=== PATIENT | female | born 1960 | race Caucasian/White ===

== ENCOUNTER 2018-01-05 06:49 | Day surgery (SDC) | payer MEDICAID, SELFPAY ==
[2018-01-04 09:54] VITALS: BMI 26.6
[2018-01-05] VITALS (16 sets, daily range): BP systolic 106–145; BP diastolic 53–89; PULSE 74–91; RESP 14–18; TEMP 36.7–36.8; O2SAT 94–100
--- NOTE | 2018-01-05 08:44 | P.PCN_ITS ---
- Procedure: Date: 01/05/18 Procedure Performed:: Colonoscopy with polypectomy Indications:: This is a 57-year-old female who returns for short-term repeat colonoscopy. She is approximately 1.5 year status post colonoscopy at which time a 9 mm complex polyp at 15 cm was excised. Pathologically, this was found to be hyperplastic. The visual findings and pathologic findings were considered to be discordant and a fairly short-term repeat was deemed necessary. Performing Provider:: Agustín Bennett MD Referring Provider:: Ramya Stokes APRN Sedation:: IV sedation with 11 mg of Versed and 200 mcg of fentanyl Procedure:: After informed consent was obtained, the patient was taken to the endoscopy suite. IV sedation ensued after she was transferred to the left lateral decubitus position. Digital rectal exam revealed some hemorrhoidal tags. No thrombosis or bleeding was seen. The colonoscope was placed in position. The entire colon was evaluated. Bowel preparation was moderate with large volume irrigation and suctioning used to improve visualization. Sigmoid diverticulosis once again noted. Fairly significant spasticity and tortuosity were noted. A sessile lobulated 8 mm cecal polyp was excised by way of snare. A small polyp at 40 cm was excised with cold biopsy forceps. No additional lesions were seen. The colonoscope was carefully removed and the patient was transferred to recovery. Findings:: Moderate bowel preparation Hemorrhoidal tags/cushions Fairly significant spasticity and tortuosity Unchanged sigmoid diverticulosis Sessile lobulated 8 mm cecal polyp Small polyp at 40 cm Specimens:: Sessile lobulated 8 mm cecal polyp (snared) Small polyp at 40 cm Recommendations:: Repeat colonoscopy is pending pathology but will likely be within 2-3 years secondary to size/nature of polyps, moderate preparation, and spasticity/ tortuosity. Complications:: No immediate Estimated blood obtained (mL): 1
== END 2018-01-05 09:30 | disposition home or self-care (01) ==
LOC: OUTP 06:52
PROVIDERS: Family Provider Nurse Practitioner; PCP Nurse Practitioner; Visit Provider Surgery
PROC: 0DJD8ZZ Inspection of Lower Intestinal Tract, Via Natural or Artificial Opening Endoscopic (ICD-10-PCS; CPT 45380; principal; 2018-01-05 08:30)
DX: K56.2 Volvulus (principal); K58.9 Irritable bowel syndrome, unspecified; K57.30 Diverticulosis of large intestine without perforation or abscess without bleeding; Z87.19 Personal history of other diseases of the digestive system
CPT/HCPCS: 45380; 45385; 99152; 99153

== ENCOUNTER 2024-10-01 08:45 | Outpatient (CLI) | payer MEDICARE, SELFPAY ==
--- NOTE | 2024-10-01 08:48 | XR_ITS ---
FINAL REPORT CLINICAL HISTORY: SCREENING COMPARISON: None FINDINGS: Using L1-4, the bone mineral density of the spine is 0.873 g/cm2, corresponding to T-score of -1.6, consistent with osteopenia. Using the left hip, the bone mineral density of the femoral neck is 0.630 g/cm2, corresponding to a T-score of -2.0, consistent with osteopenia. Using the right hip, the bone mineral density of the femoral neck is 0.680 g/cm2, corresponding to a T-score of -1.5, consistent with osteopenia. FRAX not reported because the patient is being treated for osteoporosis. NOTE: T-score: Standard deviation compared with peak bone mass of young adult mean. *Following the recommendations of the International Society of Bone densitometry, classification of hip BMD is based on the lower of two T-scores; total hip or femoral neck. IMPRESSION: Diminished bone mineral density consistent with osteopenia. Reviewed, Interpreted and Dictated by Promise Flores MD Transcribed by Jeanette Tony Authenticated and [facility]
== END 2024-10-01 23:59 | disposition home or self-care (01) ==
LOC: RAD 08:46
PROVIDERS: PCP Nurse Practitioner; Visit Provider Nurse Practitioner
DX: M81.0 Age-related osteoporosis without current pathological fracture (principal)
CPT/HCPCS: 77080

== ENCOUNTER 2024-11-06 09:25 | Day surgery (SDC) | payer MEDICARE, SELFPAY ==
--- NOTE | 2024-10-30 13:27 | SUR.PREOP ---
10/30/24 1327- voicemail left for patient to call back for pre op.
[2024-10-30 13:40] VITALS: BMI 25.6
--- NOTE | 2024-11-06 09:39 | P.PNANES_ITS ---
[facility] Disclaimer: The information contained in this section may have been updated after the patient was seen, as this information can be updated by other users. Medical History (Updated 10/30/24 @ 13:36 by Carmen De Guzman RN) Osteopenia Surgical History (Updated 10/30/24 @ 13:36 by Carmen De Guzman RN) H/O knee surgery H/O colonoscopy Family History (Updated 10/30/24 @ 13:37 by Carmen De Guzman RN) Other Family history of AK (myocardial infarction) Family history of ovarian cancer Social History (Updated 10/30/24 @ 13:37 by Carmen De Guzman RN) Smoking Status: Current every day smoker alcohol intake: current alcohol intake frequency: holidays/special occasions only substance use type: denies use current occupational status: retired Travel in the last 8 weeks: None caffeine: Yes Have you lived/traveled outside [place] in past 30 days?: No Contact w/someone who lives/traveled outside [place] past 30 days?: No Exposure to someone with infectious disease in past 14 days?: No Do you have a fever (greater than 100.4 F or 38 C)?: No Have you tested positive for COVID-19: No Exposed to someone with COVID-19 in past 14 days?: No Do you have a sore throat?: No Do you have a cough?: No Do you have any weakness?: No Are you experiencing any nausea/vomitting?: No Do you have any diarrhea?: No Are you experiencing any unusual bleeding?: No Do you have any muscle aches/pain?: No Do you have any abdominal pain?: No Are you experiencing loss of taste or smell?: No [facility] Anesthesia Checklist Patient Identification Patient Identification: Arm Band and Verbal (Name & ) Structural Data Admitted From: Home Planned Operative Procedure/s: Colonoscopy Consent for Planned Operative Procedure(s) Verified: Yes Verified Documents: Surgical Consent and History and Physical NPO Status Verified Time NPO: 00:00 Additional verifications Patient : No Anesthesia Reactions: No (states hard time waking) Cardiovascular Assessment Heart Sounds: S1 & S2 Pulse Rhythm: Irregular Peripheral Edema: No Airway Assessment Mallampati Score:: Class II C-Spine Mobility Assessed: Yes TMJ Mobility Assessed: Yes Dentition: Good Dentition Neurological Assessment Level of Consciousness: Awake, Alert, Appropriate and Follows Commands Hx Seizures: No Numbness or tingling in extremities: No Anesthesia Plan Anesthesia Risk discussed: Yes Anesthesia Plan: Verified ASA Class: II Anesthesia Type: MAC
[2024-11-06] MEDS: LACTATED RINGERS 1000ML 1,000 ML 50 ML IV (09:45)
[2024-11-06 09:46] VITALS: BP 153/79; PULSE 89; RESP 18; TEMP 36.5; O2SAT 98
--- NOTE | 2024-11-06 09:49 | P.PCN_ITS ---
Procedure: Date: 11/06/24 Patient Date of :: 1960 Procedure Performed:: Colonoscopy Indications:: History of colon polyps Note: Colonoscopy December 2017 was somewhat complicated by moderate bowel preparat ion. Fairly significant spasticity and tortuosity also noted. Hemorrhoidal tag/cushions and sigmoid diverticulosis confirmed. Polyps of the cecum and at 40 cm were excised. Performing Provider:: Agustín Bennett MD Referring Provider:: . Sedation:: Monitored anesthesia care Procedure:: After informed consent was obtained the patient was taken to the endoscopy suite. Sedation ensued after the patient was transferred to the left lateral decubitus position. Pulse, blood pressure, and oxygen saturation were monitored throughout the procedure. Digital rectal exam revealed no significant abnormal ity. The colonoscope was placed in position. The entire colon was evaluated. The colonoscope was carefully removed and the patient was transferred to recovery in stable condition. Please see findings and specimens below for detail. Findings:: Bowel preparation moderate to poor Hemorrhoidal tag/cushions (unchanged) Pandiverticulosis (unchanged) Profound tortuosity (particularly sigmoid) Moderate spasticity/lack of relaxation Specimens:: None Recommendations:: Repeat colonoscopy in ~ 3 years secondary to history of polyps, limited bowel preparation, severe tortuosity, and moderate spasticity. Complications:: No immediate Estimated blood obtained (mL): 0 Colonoscopy Component Colonoscopy Component Was a colonoscopy performed during today's procedure?: Yes Recommended follow up colonoscopy of at least 10 years?: No If no, follow up colonoscopy recommended in ___ years?: (See above) Reason for not recommending >/= 10 yr follow-up interval?: (See above)
[2024-11-06 10:35] VITALS: BP 146/81; PULSE 86; RESP 16; TEMP 36.4; O2SAT 98
[2024-11-06 10:45] VITALS: BP 138/78; PULSE 74; RESP 16; O2SAT 100
[2024-11-06 11:00] VITALS: BP 150/76; PULSE 75; RESP 16; O2SAT 100
== END 2024-11-06 11:10 | disposition home or self-care (01) ==
PROVIDERS: PCP Nurse Practitioner; Visit Provider Surgery
PROC: 0DJD8ZZ Inspection of Lower Intestinal Tract, Via Natural or Artificial Opening Endoscopic (ICD-10-PCS; CPT 45378; principal; 2024-11-06 10:30)
DX: K57.30 Diverticulosis of large intestine without perforation or abscess without bleeding (principal); K64.9 Unspecified hemorrhoids; Z86.0100 Personal history of colon polyps, unspecified
CPT/HCPCS: 45378; J7120

== ENCOUNTER 2024-12-13 14:42 | Outpatient (CLI) | payer MEDICARE, SELFPAY ==
--- NOTE | 2024-12-13 14:44 | MM_ITS ---
PROCEDURE INFORMATION: Exam: MG Bilateral Screening 3D Mammography Exam date and time: 12/13/2024 2:59 PM Age: 64 years old Clinical indication: Screening examination TECHNIQUE: Imaging protocol: Bilateral Screening tomosynthesis and 2D mammography including computer-aided detection (CAD) when performed. COMPARISON: 1. MG DMSB DIG MAMM-SCREEN PING 04/07/2016 3:02 PM 2. MG DMDXUL DIG MAMM-DX UNILATERAL-LT 10/19/2011 1:16 PM FINDINGS: MAMMOGRAPHY: Breast composition: The breasts are heterogeneously dense, which may obscure small masses. Mass: None. Architectural distortion: None. Calcifications: No suspicious calcifications. Asymmetric density: None. Skin thickening: None. Axillary adenopathy: None. IMPRESSION: No mammographic evidence of malignancy. Annual screening is recommended unless otherwise clinically indicated. ASSESSMENT: BI-RADS Category 1: Negative.
== END 2024-12-13 23:59 | disposition home or self-care (01) ==
LOC: RAD 14:42
PROVIDERS: PCP Nurse Practitioner; Visit Provider Nurse Practitioner
DX: Z12.31 Encounter for screening mammogram for malignant neoplasm of breast (principal)
CPT/HCPCS: 77063; 77067

== ENCOUNTER 2025-06-14 14:19 | Outpatient (RCR) | payer MEDICARE, SELFPAY | END 2025-06-14 23:59 | disposition home or self-care (01) | LOC: PT 14:19 | PROVIDERS: Visit Provider Physician Assistant | DX: M25.561 Pain in right knee (principal) | CPT/HCPCS: 97760 ==

== ENCOUNTER 2025-07-10 12:00 | Outpatient (CLI) | payer MEDICARE, SELFPAY ==
--- OUTSIDE RECORDS SUMMARY | 2025-07-11 09:43 | XMS_ITS | Clinical Summary ---
Author Organization Healthcare Address [address] [place] [address] Care Team Providers [employer] Account Executive Name Role Phone Unavailable Primary Care Provider Unavailabl e Family History Medical History Relation Name Comments Cervical cancer Mother Relation Name Status Comments Mother Social History Tobacco Use Types Packs/Day Years Used Date Smoking Tobacco: Light Smoker Comments:Light cigarette smo ker (1-9 cigarettes per day) Comments Unknown Sex and Gender Information Value Date Recorded Sex Assigned at Not on file Legal Sex Female 6:05 PM EDT Gender Identity Not on file Sexual Orientation Not on file Last Filed Vital Signs Vital Sign Reading Time Taken Comments Blood Pressure - - Pulse - - Temperature - - Respiratory Rate - - Oxygen Saturation - - Inhaled Oxygen Concentration - - Weight 68.9 kg (152 lb 0.1 oz) 04/22/2016 10:05 AM EDT Height 156.2 cm (5' 1.5 ) 04/22/2016 10:05 AM ED T Body Mass Index 28.26 04/22/2016 10:05 AM EDT Plan of Treatment Not on file
== END 2025-07-10 23:59 ==
LOC: LAB.DROPOF 07-11 09:40
PROVIDERS: PCP Nurse Practitioner; Visit Provider Nurse Practitioner
DX: R35.0 Frequency of micturition (principal)
CPT/HCPCS: 87086; 87088